=== PATIENT | male | born 1985 | race Two or more races ===

== ENCOUNTER 2022-05-22 15:55 | Emergency (ER) | payer MEDICAID, OTHER ==
[~2022-05-22] VITALS: Ht 172.7 cm; Wt 86.3 kg
[2022-05-22 16:02] VITALS: BP 154/99
[2022-05-22 16:43] LABS: Amphetamine Screen, Urine NEGATIVE (NEGATIVE); Barbiturate Scree,Urine NEGATIVE (NEGATIVE); Benzodiazephine Screen, Urine NEGATIVE (NEGATIVE); Cannabinoid Screen, Urine NEGATIVE (NEGATIVE); Cocaine Screen, Urine NEGATIVE (NEGATIVE); Opiate Scree,Urine NEGATIVE (NEGATIVE); Phencyclidine Screen, Urine NEGATIVE (NEGATIVE)
[2022-05-22 18:48] LABS: Basophils # (auto) 0.1 10 ^3/uL (0-0.2); Basophils % (auto) 1.2 % (0.0-2.0); Eosinophils # (auto) 0.1 10 ^3/uL (0-0.8); Eosinophils % (auto) 0.8 % (0.0-7.0); Hematocrit 47.1 % (41.0-53.0); Hemoglobin 15.7 g/dL (13.5-17.5); Lymphocytes # (auto) 2.4 10 ^3/uL (0.4-5.4); Lymphocytes % (auto) 34.6 % (10.0-50.0); Mean Corpuscular Hemoglobin 31.8 pg (28.0-32.0); Mean Corpuscular Hgb Conc. 33.3 g/dL (32.0-36.0); Mean Corpuscular Volume 95.7 fL (80.0-100.0); Monocytes # (auto) 0.5 10 ^3/uL (0-1.3); Monocytes % (auto) 7.9 % (0.0-12.0); Neutrophils # (auto) 3.8 10 ^3/uL (1.6-8.6); Neutrophils % (auto) 55.5 % (37.0-80.0); Red Blood Cells 4.93 10^6/uL (4.5-5.90); Red Cell Distribution Width 13.4 % (11.8-14.3); White Blood Cell 6.9 10^3/uL (4.4-10.8)
[2022-05-22 18:59] LABS: Albumin 3.9 g/dL (3.4-5.0); Anion Gap 14 (5-15); BUN/Creatinine Ratio 2.8; Blood Urea Nitrogen 2 mg/dL (7-18); Calcium 8.3 mg/dL (8.5-10.1); Carbon Dioxide 22 mmol/L (21-32); Chloride 104 mmol/L (98-107); GFR African American 163 mL/min; GFR Non-African American 135 mL/min; Glucose 218 mg/dL (74-106); Potassium 3.1 mmol/L (3.5-5.1); Sodium 140 mmol/L (136-145)
[2022-05-22 19:12] LABS: Alanine Aminotransferase 89 U/L (16-61); Alkaline Phosphatase 169 U/L (45-117); Aspartate Aminotransferase 110 U/L (15-37); Bilirubin, Total 1.3 mg/dL (0.2-1.0); Total Protein 8.7 g/dL (6.4-8.2)
[2022-05-22 19:19] LABS: Blood Alcohol 422.5 mg/dL (0-5)
[2022-05-22] MEDS ORDERED: chlordiazePOXIDE HCL 5 MG CAP PO ONE (19:45)
== END 2022-05-22 20:58 | disposition home or self-care (01) ==
LOC: ER 15:55
DX: F10.129 Alcohol abuse with intoxication, unspecified (principal); K70.9 Alcoholic liver disease, unspecified; Y90.8 Blood alcohol level of 240 mg/100 ml or more
CPT/HCPCS: 36415; 80053; 80307; 80320; 85025

== ENCOUNTER 2023-01-29 21:04 | Emergency (ER) | payer MEDICAID ==
[~2023-01-29] VITALS: Ht 167.6 cm; Wt 60.0 kg
[2023-01-29] MEDS ORDERED: EPINEPHrine HCL 1 MG/10 ML SYRG IV ONE (21:05)
[2023-01-29] MEDS ORDERED: NOREPINEPHRINE 8 MG/250ML KIT 250 ML IV ONE (21:33)
[2023-01-29 21:35] LABS: Hemoglobin 14.5 g/dL (13.5-17.5); Mean Corpuscular Hemoglobin 32.3 pg (28.0-32.0); Mean Corpuscular Volume 97.7 fL (80.0-100.0); Red Cell Distribution Width 15.6 % (11.8-14.3); White Blood Cell 5.6 10^3/uL (4.4-10.8)
[2023-01-29 21:43] LABS: Band Neutrophils % (manual) 0; Basophils % (manual) 0 (0.0-2.0); Blast Cells 0; Metamyelocytes % 0; Myelocytes % 0; Promyelocytes % 0; Reactive Lymphocytes 0
[2023-01-29] MEDS ORDERED: EPINEPHrine HCL 1 MG/10 ML SYRG ONE (21:46)
[2023-01-29 21:48] LABS: INR 1.27 (0.9-1.15); Partial Thromboplastin Time 47.6 sec (24.6-33.4)
[2023-01-29 21:58] LABS: Albumin 3.2 g/dL (3.4-5.0); Calcium 8.1 mg/dL (8.5-10.1)
[2023-01-29 22:06] LABS: Bilirubin, Total 1.3 mg/dL (0.2-1.0); Total Protein 7.1 g/dL (6.4-8.2)
[2023-01-29 22:17] LABS: Potassium 6.1 mmol/L (3.5-5.1)
[2023-01-29 22:44] LABS: Eosinophils % (manual) 1 (0-7); Lymphocytes % (manual) 69 (10.0-50.0); Monocytes % (manual) 4 (0-12)
== END 2023-01-30 02:14 ==
LOC: EDBD 21:04 → ER 21:04
DX: I46.9 Cardiac arrest, cause unspecified (principal); S09.8XXA Other specified injuries of head, initial encounter; J93.9 Pneumothorax, unspecified; R41.82 Altered mental status, unspecified; R06.89 Other abnormalities of breathing; H57.04 Mydriasis; M21.951 Unspecified acquired deformity of right thigh; Z79.01 Long term (current) use of anticoagulants; X58.XXXA Exposure to other specified factors, initial encounter; Y93.89 Activity, other specified; Y92.89 Other specified places as the place of occurrence of the external cause; Y99.8 Other external cause status
CPT/HCPCS: 31500; 32551; 36415; 36430; 36556; 80053; 84484; 85007; 85027; 85610; 85730; 86850; 86900; 86901; 86920; 92950; 99291; J0171; P9016